=== PATIENT | male | born 1960 | race African-American/Black ===

== ENCOUNTER 2017-11-26 14:09 | Emergency (ER) | payer MEDICAID ==
[~2017-11-26] VITALS: Ht 162.6 cm; Wt 77.3 kg
[2017-11-26] MEDS ORDERED: CARB200C4 PO (14:19)
[2017-11-26] MEDS ORDERED: HYDROCODONE/ACETAMINOPHEN 5-325 MG TABLET PO ONE (15:15)
[2017-11-26] MEDS ORDERED: KETOROLAC TROMETHAMINE 60 MG/2 ML VIAL IM ONE (15:15)
[2017-11-26 17:56] VITALS: BP 122/76
== END 2017-11-26 17:58 | disposition home or self-care (01) ==
LOC: EMS 14:12
DX: G50.0 Trigeminal neuralgia (principal)
CPT/HCPCS: 96372; 99283; J1885